=== PATIENT | female | born 1975 | race Caucasian/White ===

== ENCOUNTER 2016-03-18 07:27 | Emergency (ER) | payer BC ==
[2016-03-18] MEDS ORDERED: METHYLPRED SOD SUCC 125 MG/2 ML VIAL ONE ×2 (07:47→08:05)
[2016-03-18] MEDS ORDERED: KETOROLAC 30 MG/ML VIAL ONE (07:47)
[2016-03-18] MEDS ORDERED: DUONEB INH ONE ×2 (07:52)
== END 2016-03-18 10:04 | disposition home or self-care (01) ==
LOC: ER 07:27
DX: J20.9 Acute bronchitis, unspecified (principal); R09.1 Pleurisy; M94.0 Chondrocostal junction syndrome [Tietze]; Z79.899 Other long term (current) drug therapy; F17.210 Nicotine dependence, cigarettes, uncomplicated
CPT/HCPCS: 36415; 71020; 80053; 82553; 83880; 84439; 84443; 84484; 84703; 85025; 85379; 85610; 85730; 93005; 94640; 96374; 96375